=== PATIENT | female | born 1970 | race Two or more races ===

== ENCOUNTER 2016-12-23 09:26 | Emergency (ER) | payer OTHER ==
[~2016-12-23] VITALS: Ht 154.9 cm; Wt 68.5 kg
[~2016-12-23 09:26] MED LIST: IBUP600T16 PO; TRAM50TA PO
[2016-12-23 09:37] VITALS: BP 137/88
--- NOTE | 2016-12-23 09:55 | PHYS DOC ---
General Chief Complaint: URINARY FREQUENCY Stated Complaint: UTI SYMPTOMS Time Seen by MD: 09:29 Source: patient Exam Limitations: no limitations Problems: History of Present Illness Initial Comments Pt is 46/F to ED with urinary symptoms. Pt states past few days she's had dysuria and whitish discharge. No blood/odor/ frequency/hesitancy/fever/n/v/d. Recent antibiotics, pt also with vaginal itching/whitish discharge. No pelvic pain/dyspareunia. Timing/Duration: other (few days) Severity/Quality: moderate, burning, cramping, other Location: suprapubic, vaginal, urethral Radiation: none Activities at Onset: none Prior Genitourinary Problems: similar symptoms Modifying Factors: worse with urinating Associated Symptoms: dysuria Allergies: Coded Allergies: Penicillins (Verified Allergy, Intermediate, VOMITING/RASH, 01/24/14) Past Medical History Medical History: other (ovarian cyst, kidney stone) Surgical History: noncontributory (partial hysterectomy, ovarian cyst) Social History Smoker: non-smoker Alcohol: none Drugs: none Review of Systems Constitutional: denies chills, denies diaphoresis, denies fever, denies malaise Respiratory: denies cough, denies shortness of breath, denies wheezing Cardiovascular: denies chest pain, denies palpitations, denies syncope Gastrointestinal: see HPI, denies diarrhea, denies nausea, denies vomiting Genitourinary: see HPI Musculoskeletal: denies back pain, denies joint swelling, denies neck pain Psychiatric/Neurological: denies headache, denies numbness, denies paresthesia Physical Exam General Appearance: WD/WN, no apparent distress HEENT: normal ENT inspection Neck: non-tender, supple Cardiovascular/Respiratory: normal peripheral pulses, no respiratory distress Gastrointestinal: normal bowel sounds, soft (ND, suprapubic TTP no r/g/mass, neg mcburney/anne), no organomegaly Rectal: deferred Back: no CVA tenderness, no vertebral tenderness Extremities: non-tender, normal inspection 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 Will tx empirically for vaginal candidal infection diflucan 150 in ED. Departure Time of Disposition: 10:07 Disposition: 01 HOME, SELF-CARE Diagnosis: vaginal candidiasis Condition: GOOD Patient Instructions: Candidal Vulvovaginitis, [id number] Additional Instructions: The diflucan given in ED should resolve your symptoms. Follow up with your doctor Sunday if not better. Return to ED with new or changing symptoms. NIK COLINDRES DO December 23, 2016 09:55
[2016-12-23 10:02] LABS: BACTERIA,URINE MOD /HPF (0-FEW); BILIRUBIN,URINE NEG (NEG); CLARITY,URINE HAZY; COLOR,URINE YELLOW; GLUCOSE,URINE NEG (NEG); NITRITE,URINE NEG (NEG); SQUAMOUS EPITHELIAL CELL,UR MOD /LPF; UROBILINOGEN,URINE 0.2 mg/dL (0.2 mg/dL)
[2016-12-23] MEDS ORDERED: FLUCONAZOLE 100 MG TABLET. PO ONE (10:15)
== END 2016-12-23 10:17 | disposition home or self-care (01) ==
LOC: ER 09:26
DX: B37.3 Candidiasis of vulva and vagina (principal); Z87.442 Personal history of urinary calculi; Z88.0 Allergy status to penicillin
CPT/HCPCS: 81001; 87086; 99284